=== PATIENT | female | born 1955 | race Caucasian/White ===

== ENCOUNTER → 2017-10-20 | Outpatient (CLI) | payer BC, OTHER ==
--- NOTE | 2017-11-01 13:06 | MM ---
Reason for exam: screening (asymptomatic). Last mammogram was performed 1 year and 3 months ago. History: Patient is postmenopausal. Took hormonal contraceptives beginning at age 17. Physical Findings: A clinical breast exam by your physician is recommended on an annual basis and results should be correlated with mammographic findings. MG Screening Mammo w CAD Bilateral CC and MLO view(s) were taken. Prior study comparison: July 30, 2016, mammogram, performed at [place]. October 22, 2014, mammogram, performed at [place]. The breast tissue is extremely dense which could obscure a lesion on mammography. No significant changes when compared with prior studies. ASSESSMENT: Benign, BI-RAD 2 RECOMMENDATION: Routine screening mammogram of both breasts in 1 year.
== END | disposition home or self-care (01) ==
LOC: RADMAMWWP 13:13
PROVIDERS: ATTEND Family Medicine
DX: Z12.31 Encounter for screening mammogram for malignant neoplasm of breast (principal)
CPT/HCPCS: 77067

== ENCOUNTER → 2021-02-11 | Outpatient (CLI) | payer BC, OTHER | END | disposition home or self-care (01) | LOC: LABWHC1 12:01 | PROVIDERS: ATTEND Family Medicine | DX: R09.81 Nasal congestion (principal) | CPT/HCPCS: U0003; C9803; U0005 ==

== ENCOUNTER → 2021-10-29 | Outpatient (CLI) | payer BC, OTHER ==
--- NOTE | 2021-10-29 12:20 | CT ---
EXAMINATION TYPE: CT abdomen w con CT DLP: 593.4 mGycm, Automated exposure control for dose reduction was used. DATE OF EXAM: 10/29/2021 12:02 PM COMPARISON: None. CLINICAL INDICATION:Female, 66 years old with history of R10.13 Epigastric pain; TECHNIQUE: Standard CT of the abdomen following the administration of 70 cc of Isovue [address] material and oral contrast. Coronal and sagittal reformats were performed. FINDINGS: LOWER CHEST: Unremarkable ABDOMEN LIVER: Unremarkable GALLBLADDER AND BILE DUCTS: Unremarkable. PANCREAS: Unremarkable. SPLEEN: Unremarkable. ADRENAL GLANDS: Unremarkable. KIDNEYS AND URETERS: No evidence of hydronephrosis or renal calculus. The ureters are unremarkable. STOMACH AND BOWEL: Stomach and duodenum are unremarkable. No focal wall thickening. The appendix is w ithin normal limits. Stool is present within the visualized colon. Enteric contrast reaches the trans verse colon. No evidence of bowel obstruction. PERITONEUM: No evidence of pneumoperitoneum or free fluid. VASCULATURE: Mild atherosclerotic calcifications are present throughout the abdominal aorta and its b ranches. No evidence of aortic aneurysm. MUSCULOSKELETAL: No acute osseous abnormalities. Degenerative changes at L5-S1 with disc space narrow ing, endplate sclerosis, vacuum disc phenomenon, and osteophytosis. LYMPH NODES: No gross evidence for lymphadenopathy. SOFT TISSUE/ABDOMINAL WALL: Small peripherally enhancing fluid collection in the umbilicus measuring 1.4 x 0.7 x 1.0 cm (series 3, image 39). There is minimal surrounding haziness. IMPRESSION: Small fluid collection in the umbilicus measuring up to 1.4 cm. This may represent a sebaceous cyst v ersus small abscess. Clinical correlation is recommended.
== END | disposition home or self-care (01) ==
LOC: RADCTMAIN 09:35
PROVIDERS: ATTEND Family Medicine
DX: R10.13 Epigastric pain (principal); R11.2 Nausea with vomiting, unspecified
CPT/HCPCS: 74160; Q9967 ×2

== ENCOUNTER → 2022-11-19 | Outpatient (CLI) | payer MEDICARE, OTHER ==
--- NOTE | 2022-11-19 09:12 | US ---
EXAMINATION TYPE: US liver DATE OF EXAM: 11/19/2022 COMPARISON: CT dated 10/29/2021 CLINICAL INDICATION: Female, 67 years old with history of K74.3 PRIMARY BILIARY CIRRHOSIS; TECHNIQUE: Multiple sonographic images of the right upper quadrant are obtained. FINDINGS: EXAM MEASUREMENTS: Liver Length: 11.9 cm Gallbladder Wall: 0.3 cm CBD: 0.4 cm Right Kidney: 10.5 x 4.3 x 4.2 cm Pancreas: visualized portions wnl Liver: Increased echotexture with coarsened appearance. No suspicious masses or cysts. No ductal dila tion. Gallbladder: No stones seen Evidence for sonographic Castano's sign: No CBD: wnl Right Kidney: No hydronephrosis or masses seen IMPRESSION: Hepatic steatosis.
== END | disposition home or self-care (01) ==
LOC: RADUSWWP 06:44
PROVIDERS: ATTEND Internal Medicine Gastroenterology
DX: K76.0 Fatty (change of) liver, not elsewhere classified (principal); K74.3 Primary biliary cirrhosis
CPT/HCPCS: 76705

== ENCOUNTER → 2024-09-10 | Outpatient (CLI) | payer MEDICARE, OTHER ==
--- NOTE | 2024-09-10 09:43 | MM ---
Reason for Exam: Screening (asymptomatic). Last mammogram was performed 6 year(s) and 11 month(s) ago. Patient History: Menarche at age 13. First Full-Term at age 26. Postmenopausal. Hormonal Contraceptives, from age 17 until age 47. Risk Values: Brooklyn 5 year model risk: 1.7%. NCI Lifetime model risk: 5.7%. Prior Study Comparison: 10/22/2014 Screening Mammogram, [place]. 07/30/2016 Screening Mammogram, [place]. 10/20/2017 Bilateral Screening Mammogram, [facility]. Tissue Density: The breasts are heterogeneously dense, which may obscure small masses. Findings: Analyzed By CAD. There is no suspicious group of microcalcifications or new suspicious mass in either breast. Overall Assessment: Negative, BI-RAD 1 Management: Screening Mammogram of both breasts in 1 year. Patient should continue monthly self-breast exams. A clinical breast exam by your physician is recommended on an annual basis. This exam should not preclude additional follow-up of suspicious palpable abnormalities. Note on Brooklyn scores and lifetime risk: 1. A Brooklyn score greater than 3% is considered moderate risk. If this is the case, consider specialist referral to assess eligibility for a risk reducing agent. 2. If overall lifetime risk for the development of breast cancer is 20% or higher, the patient may qualify for future screening with alternating mammogram and breast MRI. [facility], , 09/10/2024 9:37 AM. Electronically signed and approved by: Kaci Wild M.D. Radiologist
== END | disposition home or self-care (01) ==
LOC: RADMAMWWP 07:47
PROVIDERS: ATTEND Family Medicine
DX: Z12.31 Encounter for screening mammogram for malignant neoplasm of breast (principal); R92.333 Mammographic heterogeneous density, bilateral breasts; Z78.0 Asymptomatic menopausal state; Z92.0 Personal history of contraception
CPT/HCPCS: 77063; 77067